=== PATIENT | female | born 1945 | race Caucasian/White ===

== ENCOUNTER → 2016-10-14 | Outpatient (CLI) | payer BC ==
[~2016-10-14] MED LIST: ACETAMINOPHEN PO; ACETAMINOPHEN650 M3 PO; ACTOS PO; ADVAIR 1001 DISK W/D PO; ALBUTEROL MININEB NEB; ALPRAZOLAM PO; ALTACE PO; AMIODARONE PO; ARTHRITIS PAIN650 M3 PO; ASPIR-TRIN325 MG PO; ASPIRIN BUFFER325 M2 PO; ASPIRIN ENTERI325 M1 PO; ASPIRIN PO; ASPIRINEC PO; AUGMENTIN1 TAB.SR1 PO; AVALIDE PO; BUMEX PO; CHANTIX PO; CRESTOR PO; CRESTOR10 MG PO; DARVOCET-N 1001 TAB PO; DOXYCYCLINE PO; DUONEB 2.5-0.5 M3 ML NEB; FAMOTIDINE PO; GLIPIZIDE PO; GLIPIZIDE10 MG PO; GLUCOPHAGE500 MG PO; GLUCOTROL PO; GLUCOTROL10 MG PO; HYDRALAZINE HCL25 MG PO; HYDROCHLOROTHIA25 MG PO; IPRAT-ALBUT 0.5-3 ML INH; IPRATR-ALBUTEROL3 ML IH; IPRATR-ALBUTEROL3 ML NEB; IRBESARTAN-HCT1 EAC1 PO; IRBESARTAN-HCT1 EACH PO; IRBESARTAN300 MG PO; LASIX PO; LIPITOR40 MG PO; LOPRESSOR PO; LORTAB 7.5-5001 TAB PO; METFORMIN PO; METOPROLOL SUC100 MG PO; METOPROLOL SUCC50 MG PO; MOBIC PO; MOTRIN600 MG PO; NON-ASPIRIN PA325 MG PO; NORVASC10 MG PO; OMEPRAZOLE40 M1 PO; OXYGEN; PLAVIX PO; PREDNISONE PO; PREDNISONE5 MG PO; PRILOSEC PO; RAMIPRIL5 MG PO; SKELAXIN PO; SPECTAZOLE15 GM TP; SYSTANE 0.3-0.415 ML OP; SYSTANE BALANCE10 ML OU; SYSTANE GEL EYE10 ML OP; SYSTANE OU; SYSTANE1 EACH OU; TAMIFLU75 M1 DOB; TOPROL XL 50 MG50 MG PO; TOPROL XL PO; TOPROL XL50 MG PO; TYLENOL PO
--- NOTE | ~2016-10-14 | BD1 ---
[facility] A Service of [facility] RADIOLOGY TEXT RESULTS PATIENT: HUDSON BOOGIE LOCATION: [facility] : 43 UNIT #: [id number] AGE: [address]: CASSANDRA CHAVEZ MD SEX: F ORDER DR: [id number] [address] [address] [id number] O MR#: [id number] Acc #: [id number] NAME: HUDSON BOOGIE. : 1945 SEX: F STUDY DATE/TIME: 10/14/2016 11:03 UNIT: [facility] ROOM: STUDY DESCRIPTION: Dexa Bone Dens 1+ Site Attending Physician: Jil Chavez M.D. Referring Physician: Jil Chavez M.D. Ordering Physician: Jil Chavez M.D. Primary Care Physician: Jil Chavez M.D. MEDICAL IMAGING REPORT This report is preliminary unless electronic signature is present. EXAM Bone density spine hip 10/14/2016 HISTORY Osteoporosis. Metoprolol Irbesartan HCTC. History of osteoporosis in sister. History of smoking 31 years. Current smoker. FINDINGS Bone density scanning performed upper 4 lumbar vertebral segments in both proximal femurs in 71-year-old 194-pound female. No comparisons. L1-L4: Bone density 1.00 g/cm2 for a T-score 1.5 standard deviations below mean for reference population normal young individuals and Z-score 1.5 standard deviations below the mean for age-match population. PROXIMAL LEFT FEMUR: Total bone mineral density 0.799 g/cm2 for T-score 1.7 standard deviation below mean for a reference population normal young individuals and Z-score 0.6 standard deviations below the mean for age-match population. Left femoral neck bone mineral density 0.731 g/cm2 for T-score 2.2 standard deviations below mean for reference population normal young individuals and Z-score 0.9 standard deviations below mean for age-matched population. Right proximal femur total bone mineral density 0.794 g/cm2 for T-score 1.7 standard deviation below mean for reference population normal young individuals and Z-score 0.7 standard deviations below the mean for age-match population. Right femoral neck specifically bone mineral density 0.689 g/cm2 for a T-score 2.5 standard deviation below mean for reference population normal young individuals and Z-score 1.2 standard deviations below the mean for age-matched population. IMPRESSION 1. Osteoporosis in the right femoral neck. Patient felt to be at [facility] A Service of [facility] RADIOLOGY TEXT RESULTS PATIENT: HUDSON BOOGIE LOCATION: [facility] : 44 UNIT #: [id number] AGE: [address]: CASSANDRA CHAVEZ MD SEX: F ORDER DR: significantly increased risk for fracture. Treatment options may be considered. Continued surveillance is recommended. Dictated by... Kevin Mora M.D. THIS IS AN ELECTRONICALLY VERIFIED REPORT Kevin Mora M.D. at 10/17/2016 5:54 PM MARILEE/radha TD: 10/15/2016 00:11 JOB #: [id number] MEDICAL IMAGING REPORT Page 1 of 1
--- NOTE | ~2016-10-14 | MY11 ---
[facility] A Service [facility] RADIOLOGY TEXT RESULTS PATIENT: HUDSON BOOGIE LOCATION: [facility] : 43 UNIT #: [id number] AGE: [address]: CASSANDRA CHAVEZ MD SEX: F ORDER DR: [id number] [place] [id number] P MR#: [id number] Acc #: [id number] NAME: HUDSON BOOGIE : 1945 SEX: F STUDY DATE/TIME: 10/14/2016 11:03 UNIT: [facility] ROOM: STUDY DESCRIPTION: MY Mammogram Screening Dig Tino Attending Physician: Jil Chavez M.D. Referring Physician: Jil Chavez M.D. Ordering Physician: Eddie Ba Primary Care Physician: Jil Chavez M.D. MEDICAL IMAGING REPORT This report is preliminary unless electronic signature is present. EXAM Digital screening mammogram, 10/14/2016 HISTORY 71-year-old woman no risk elevation. Annual screening. COMPARISON Prior mammogram 02/18/2008 from [facility] FINDINGS Digital imaging of each breast was completed utilizing a two-view examination of each breast in craniocaudal and mediolateral-oblique projections. Review and interpretation of digital mammograms include a second review in conjunction with FDA-approved CAD device. There is a normal parenchymal presentation bilaterally consistent with the patient's age. There are no breast masses imaged and no parenchymal asymmetry is visualized. There are no suspicious microcalcifications and I see no focal architectural disturbance. IMPRESSION Negative screening digital mammogram. One-year followup recommended. Patients over the age of 40 are entered into a reminder system with target due date for the next mammogram. A result letter will also be sent to the patient. BIRADS: 1 Negative Dictated by... Abe Acharya M.D. THIS IS AN ELECTRONICALLY VERIFIED REPORT [facility] A Service [facility] RADIOLOGY TEXT RESULTS PATIENT: HUDSON BOOGIE LOCATION: [facility] : 43 UNIT #: [id number] AGE: [address]: CASSANDRA CHAVEZ MD SEX: F ORDER DR: Abe Acharya M.D. at 10/14/2016 1:58 PM Ortega TD: 10/14/2016 11:49 JOB #: [id number] MEDICAL IMAGING REPORT Page 1 of 1
== END | disposition home or self-care (01) ==
LOC: SMAM 10:16
DX: Z12.31 Encounter for screening mammogram for malignant neoplasm of breast (principal); M81.0 Age-related osteoporosis without current pathological fracture
CPT/HCPCS: 77080; G0202

== ENCOUNTER 2017-03-29 08:57 | Emergency (ER) | payer BC ==
[~2017-03-29] VITALS: Ht 147.3 cm; Wt 97.1 kg
--- NOTE | ~2017-03-29 | EKG ---
PATIENT: HUDSON BOOGIE UNIT #: [id number] Ventricular Rate: 56 BPM Atrial Rate: 56 BPM P-R Interval: 172 ms QRS Duration: 80 ms Q-T Interval: 450 ms QTC Calculation(Bezet): 434 ms P [place]: 105 degrees Calculated R [place]: -10 degrees Calculated T [place]: 133 degrees Diagnosis Line: Sinus bradycardia with marked sinus arrhythmia Diagnosis Line: Minimal voltage criteria for LVH, may be normal Diagnosis Line: variant Diagnosis Line: Septal infarct (cited on or before 06-AUG-2012) Diagnosis Line: T wave abnormality, consider lateral ischemia Diagnosis Line: Abnormal ECG Diagnosis Line: When compared with ECG of 28-JUL-2014 15:10, Diagnosis Line: No significant change was found Diagnosis Line: Confirmed by GISSEL ORTIZ MD ([id number]) on 03/29/2017 Diagnosis Line: 5:03:04 PM INTERPRETING MD: DIANA METZ
--- NOTE | ~2017-03-29 | CR72 ---
[facility] A Service of [facility] RADIOLOGY TEXT RESULTS PATIENT: HUDSON BOOGIE LOCATION: [facility] : 43 UNIT #: [id number] AGE: [address]: Jose Amaya MD SEX: F ORDER DR: [id number] [facility] [address] [place], [place] [address] [id number] E MR#: [id number] Acc #: [id number] NAME: HUDSON BOOGIE : 1945 SEX: F STUDY DATE/TIME: 03/29/2017 9:50 UNIT: [facility] ROOM: STUDY DESCRIPTION: CR Chest Single View Portable Attending Physician: Jose Amaya M.D. Ordering Physician: Jose Amaya M.D. Primary Care Physician: Jil Morgan M.D. MEDICAL IMAGING REPORT This report is preliminary unless electronic signature is present EXAM Portable chest. INDICATIONS Dyspnea, shortness of air this morning, 03/29. COMPARISON 09/15/2014. FINDINGS Portable view of the chest was obtained. Heart is mildly enlarged. The lungs are clear. Sternotomy wires are present. IMPRESSION Stable mild cardiomegaly. No active disease. Dictated by... Seth Wolff M.D. THIS IS AN ELECTRONICALLY VERIFIED REPORT Seth Wolff M.D. at 03/30/2017 7:20 AM LUI/bryson TD: 03/29/2017 20:20 JOB #: [id number] MEDICAL IMAGING REPORT Page 1 of 1 COPY
[~2017-03-29 08:57] MED LIST changes: -ASPIRIN BUFFER325 M2 PO; -IPRAT-ALBUT 0.5-3 ML INH; -IRBESARTAN300 MG PO; -METOPROLOL SUC100 MG PO; -NON-ASPIRIN PA325 MG PO
[2017-03-29] MEDS ORDERED: OMEPRAZOLE40 M1 PO (09:56)
[2017-03-29] MEDS ORDERED: NON-ASPIRIN PA325 MG PO (09:56)
[2017-03-29] MEDS ORDERED: METOPROLOL SUC100 MG PO (09:57)
[2017-03-29] MEDS ORDERED: GLIPIZIDE10 MG PO (09:57)
[2017-03-29] MEDS ORDERED: LIPITOR40 MG PO (09:58)
[2017-03-29] MEDS ORDERED: GLUCOPHAGE500 MG PO (09:58)
[2017-03-29] MEDS ORDERED: ASPIRIN BUFFER325 M2 PO (09:59)
[2017-03-29] MEDS ORDERED: IRBESARTAN300 MG PO (10:00)
[2017-03-29] MEDS ORDERED: IPRAT-ALBUT 0.5-3 ML INH (10:00)
[2017-03-29 10:12] LABS: POC - CKMB 1.7 ng/mL (0.0-7.9); POC - TROPONIN <0.05 ng/mL (<=0.05)
[2017-03-29 10:16] LABS: BASOPHIL# 0.1 X10e3 (0-0.3); BASOPHIL% 1.2 % (0-2.5); EOSINOPHIL# 0.1 X10e3 (0-0.7); EOSINOPHIL% 1.6 % (0.0-7.0); HEMATOCRIT 31.4 % (35.0-45.0); HEMOGLOBIN 10.6 gm/dL (12.0-16.0); LYMPHOCYTE# 1.9 X10e3 (1.0-3.5); LYMPHOCYTE% 28.1 % (17.0-45.0); MEAN CELL VOLUME 90.5 FL (83-96); MEAN CORPUSCULAR HEMOGLOBIN 30.4 PG (28-34); MEAN CORPUSCULAR HGB CONC 33.6 g/dL (30-36); MEAN PLATELET VOLUME 10.6 FL (6.5-11.5); MONOCYTE# 0.4 X10e3 (0-1.0); MONOCYTE% 5.6 % (3.0-12.0); NEUTROPHIL# 4.3 X10e3 (1.5-7.1); NEUTROPHIL% 63.5 % (40-75); PLATELET COUNT 147 X10e3 (140-420); RED BLOOD COUNT 3.47 X10e (3.90-5.30); RED CELL DISTRIBUTION WIDTH 13.8 % (11.0-15.5); WHITE BLOOD COUNT 6.8 X10e3 (4.0-10.5)
[2017-03-29 10:18] LABS: DIFF IND NO
[2017-03-29 10:46] LABS: ALBUMIN SERUM 3.7 g/dL (3.5-5.0); BILIRUBIN, DIRECT 0.1 mg/dL (0.0-0.2); BILIRUBIN,INDIRECT 0.6 mg/dL (0.0-0.9); BILIRUBIN,TOTAL 0.7 mg/dL (0.2-2.0); CALCIUM SERUM 9.4 mg/dL (8.4-10.2); CREATININE SERUM 0.8 mg/dL (0.6-1.4); GLOM FILT RATE Estimated 73.7 mL/min (>60); POTASSIUM 4.4 mmol/L (3.5-5.1); PROTEIN TOTAL SERUM 6.9 g/dL (6.0-8.3)
== END 2017-03-29 12:05 | disposition home or self-care (01) ==
LOC: CED 08:57
PROVIDERS: Emergency Medicine
DX: R06.02 Shortness of breath (principal); J44.9 Chronic obstructive pulmonary disease, unspecified; E78.5 Hyperlipidemia, unspecified; I10 Essential (primary) hypertension; Z95.1 Presence of aortocoronary bypass graft; Z88.1 Allergy status to other antibiotic agents; Z88.8 Allergy status to other drugs, medicaments and biological substances; Z88.5 Allergy status to narcotic agent; Z79.82 Long term (current) use of aspirin; Z79.899 Other long term (current) drug therapy
CPT/HCPCS: 36415; 71010; 80048; 80076; 82553; 84484; 85025; 87040; 93005; 96374; 99285; J2930

== ENCOUNTER → 2017-04-05 | Outpatient (CLI) | payer BC ==
[~2017-04-05] MED LIST changes: +ASPIRIN BUFFER325 M2 PO; +IPRAT-ALBUT 0.5-3 ML INH; +IRBESARTAN300 MG PO; +METOPROLOL SUC100 MG PO; +NON-ASPIRIN PA325 MG PO
--- NOTE | ~2017-04-05 | US85 ---
[facility] A Service of [facility] RADIOLOGY TEXT RESULTS PATIENT: HUDSON BOOGIE LOCATION: [facility] : 43 UNIT #: [id number] AGE: [address]: CASSANDRA CHAVEZ MD SEX: F ORDER DR: [id number] [place] [id number] O MR#: [id number] Acc #: [id number] NAME: HUDSON BOOGIE : 1945 SEX: F STUDY DATE/TIME: 04/05/2017 13:26 UNIT: [facility] ROOM: STUDY DESCRIPTION: [facility] [employer] Stdy Attending Physician: Jil Chavez M.D. Referring Physician: Jil Chavez M.D. Ordering Physician: Jil Chavez M.D. Primary Care Physician: Jil Chavez M.D. MEDICAL IMAGING REPORT This report is preliminary unless electronic signature is present. EXAM Right lower extremity venous ultrasound 04/05/2017 HISTORY Pain in right lower extremity for 3 days. No history of DVT not taking a blood thinner. TECHNIQUE Venous ultrasound examination of the right lower extremity was performed using grayscale, spectral Doppler and color flow Doppler imaging. FINDINGS The examination is negative. There is no evidence of right lower extremity deep venous thrombus from the groin to the lower calf. Visualized greater saphenous vein is also patent. IMPRESSION Negative examination. No evidence of right lower extremity deep venous thrombosis. Dictated by... Kevin Mora M.D. THIS IS AN ELECTRONICALLY VERIFIED REPORT Kevin Mora M.D. at 04/07/2017 2:31 PM MARILEE/radha TD: 04/06/2017 00:24 [facility] A Service of [facility] RADIOLOGY TEXT RESULTS PATIENT: HUDSON BOOGIE LOCATION: [facility] : 43 UNIT #: [id number] AGE: [address]: CASSANDRA CHAVEZ MD SEX: F ORDER DR: JOB #: [id number] MEDICAL IMAGING REPORT Page 1 of 1
== END | disposition home or self-care (01) ==
LOC: SNIV 13:02
DX: M79.604 Pain in right leg (principal)
CPT/HCPCS: 93971; J2405